=== PATIENT | female | born 1940 | race Caucasian/White ===

== ENCOUNTER 2018-02-04 11:26 | Inpatient (IN) | payer MEDICARE ==
[~2018-02-04] VITALS: Ht 160 cm; Wt 95.0 kg
[2018-02-04] MEDS ORDERED: METF850T10 PO (12:03)
[2018-02-04] MEDS ORDERED: CARV3.122 PO (12:03)
[2018-02-04] MEDS ORDERED: FURO20TA3 PO (12:03)
[2018-02-04] MEDS ORDERED: POTA20PA25 PO (12:03)
[2018-02-04] MEDS ORDERED: LISI5TAB7 PO (12:03)
[2018-02-04] MEDS ORDERED: PRAV40TA2 PO (12:03)
[2018-02-04 12:08] LABS: ALBUMIN 3.4 g/dL (3.4-5.0); ANION GAP 7 mmol/L (5-15); CALCIUM 8.9 mg/dL (8.5-10.1); CHLORIDE 103 mmol/L (98-107); CREATININE 0.84 mg/dL (0.55-1.02)
[2018-02-04 12:09] LABS: MEAN CORPUSCULAR HEMOGLOBIN 21.6 pg (27.0-34.8); MEAN CORPUSCULAR HGB CONC 31.2 g/dL (32.4-35.8); MEAN PLATELET VOLUME 7.6 fL (7.4-10.4); PLATELET COUNT 410 x10^3/uL (130-400); RED BLOOD COUNT 4.31 x10^6/uL (3.82-5.3); RED CELL DISTRIBUTION WIDTH 18.6 % (9.6-15.2)
[2018-02-04 12:19] LABS: MD YES
[2018-02-04 12:21] LABS: EOS#(MANUAL) 0.11 x10^3/uL (0.0-0.4); EOS% (MANUAL) 2 % (1-7); LYMPH#(MANUAL) 1.43 x10^3/uL (1-3.4); LYMPHS% (MANUAL) 25 % (22-44); MONOS#(MANUAL) 0.23 x10^3/uL (0.3-2.7); MONOS% (MANUAL) 4 % (2-9); SEG#(MANUAL) 3.93 x10^3/uL (1.8-6.8); SEGS% (MANUAL) 69 % (42-75)
[2018-02-04 12:22] LABS: ANISOCYTOSIS 1+; MICROCYTOSIS 1+; POLYCHROMASIA 1+
[2018-02-04 12:23] LABS: <PLATELET ESTIMATE> INCREASED; <PLT MORPHOLOGY> NORMAL PLT MORPH; HYPOCHROMIA 1+
[2018-02-04] MEDS ORDERED: KETOROLAC 30 MG/1 ML ONE (12:23)
[2018-02-04] MEDS ORDERED: DIAZEPAM 5 MG TABLET ONE (12:24)
[2018-02-04] MEDS ORDERED: KETOROLAC 30 MG/1 ML IVPush ONE (12:30)
[2018-02-04] MEDS ORDERED: DIAZEPAM 5 MG TABLET PO ONE (12:30)
[2018-02-04] MEDS ORDERED: KETOROLAC 30 MG/1 ML IM ONE (12:30)
[2018-02-04] MEDS ORDERED: ONDANSETRON ODT 4 MG PO PRN (14:30)
[2018-02-04] MEDS ORDERED: DEXTROSE 50%, 50ML SYRINGE IVPush PRN (14:30)
[2018-02-04] MEDS ORDERED: GLUCAGON 1 MG IM PRN (14:30)
[2018-02-04] MEDS ORDERED: DEXTROSE 4 GM TAB.CHEW PO PRN (14:30)
[2018-02-04] MEDS ORDERED: BISACODYL 10 MG SUPP PR PRN (14:30)
[2018-02-04] MEDS ORDERED: ENALAPRILAT 1.25 MG/ML, 2ML IVPush PRN (14:30)
[2018-02-04] MEDS ORDERED: POLYETHYLENE GLYCOL 17 GM PACKET PO PRN (14:30)
[2018-02-04 15:04] LABS: HCT (SEDRATE) 29.7 % (34.6-47.8)
[2018-02-04 15:10] VITALS: BP 138/77
[2018-02-04] MEDS: METHOCARBAMOL 500 MG TABLET PO PRN (15:54)
[2018-02-04] MEDS: ENOXAPARIN 40 MG/0.4 ML SQ SCH (15:55)
[2018-02-04] MEDS: ACETAMINOPHEN 500 MG TABLET PO SCH ×2 (15:55→21:34)
[2018-02-04] MEDS: INSULIN LISPRO 100 UNITS/ML, PEN SQ-INSULIN SCH ×2 (15:59→21:35)
[2018-02-04] MEDS: IRON SUCROSE COMPLEX 100MG/5ML IV SCH (17:45)
[2018-02-04] MEDS: CARVEDILOL 3.125 MG TABLET PO SCH (17:46)
[2018-02-04 17:47] VITALS: BP 134/78
[2018-02-04 18:35] LABS: OCCULT BLOOD NEGATIVE (NEGATIVE)
[2018-02-04 19:00] VITALS: BP 131/81
[2018-02-04] MEDS: LIDODERM 5% PATCH TD PRN (19:54)
[2018-02-04] MEDS: metFORMIN 500 MG TABLET PO SCH (19:55)
[2018-02-04] MEDS: DOCUSATE 100 MG CAPSULE PO SCH (19:55)
[2018-02-04] MEDS: PRAVASTATIN 40 MG TABLET PO SCH (19:55)
[2018-02-04] MEDS: SODIUM CHLORIDE FLUSH 10ML SYR IVF SCH (19:56)
[2018-02-05] MEDS: METHOCARBAMOL 500 MG TABLET PO PRN ×3 (00:09→21:27)
[2018-02-05] MEDS: DIPHENHYDRAMINE 25 MG CAPSULE PO PRN ×2 (00:09→21:27)
[2018-02-05 00:29] LABS: CULTURE INDICATED? YES; MICROSCOPIC INDICATED
[2018-02-05 02:35] LABS: MICROSCOPIC INDICATED
[2018-02-05 03:56] VITALS: BP 126/82
[2018-02-05] MEDS: ACETAMINOPHEN 500 MG TABLET PO SCH ×3 (04:01→16:42)
[2018-02-05] MEDS: CARVEDILOL 3.125 MG TABLET PO SCH ×2 (06:26→16:42)
[2018-02-05] MEDS: INSULIN LISPRO 100 UNITS/ML, PEN SQ-INSULIN SCH ×4 (06:28→21:00)
[2018-02-05 06:54] VITALS: BP 128/77
[2018-02-05] MEDS: DOCUSATE 100 MG CAPSULE PO SCH ×2 (08:02→20:06)
[2018-02-05] MEDS: OXYcodone IR 5MG TABLET PO PRN ×3 (08:02→21:27)
[2018-02-05] MEDS: metFORMIN 500 MG TABLET PO SCH ×2 (08:02→20:06)
[2018-02-05] MEDS: LISINOPRIL 5 MG TABLET PO SCH (08:03)
[2018-02-05] MEDS: IRON SUCROSE COMPLEX 100MG/5ML IV SCH (08:03)
[2018-02-05] MEDS: SODIUM CHLORIDE FLUSH 10ML SYR IVF SCH ×2 (08:04→21:00)
[2018-02-05] MEDS: CEFTRIAXONE 1,000 MG in SODIUM CHLORIDE 0.9% 50 ML IV SCH (08:19)
[2018-02-05 12:56] VITALS: BP 120/74
[2018-02-05] MEDS: ENOXAPARIN 40 MG/0.4 ML SQ SCH (16:42)
[2018-02-05 16:44] VITALS: BP 147/81
[2018-02-05 19:20] VITALS: BP 127/78
[2018-02-05] MEDS: PRAVASTATIN 40 MG TABLET PO SCH (20:07)
[2018-02-05] MEDS: LIDODERM 5% PATCH TD PRN (20:08)
[2018-02-06] MEDS: ACETAMINOPHEN 500 MG TABLET PO SCH ×5 (00:11→23:04)
[2018-02-06 01:00] VITALS: BP 127/79
[2018-02-06] MEDS: OXYcodone IR 5MG TABLET PO PRN ×2 (03:29→10:22)
[2018-02-06 05:27] LABS: ANION GAP 9 mmol/L (5-15); CALCIUM 8.8 mg/dL (8.5-10.1); CHLORIDE 98 mmol/L (98-107); CREATININE 0.63 mg/dL (0.55-1.02)
[2018-02-06 05:32] LABS: BASOPHILS # (AUTO) 0.01 x10^3/uL (0-0.1); BASOPHILS % (AUTO) 0 % (0-1); EOSINOPHILS # (AUTO) 0.25 x10^3/uL (0-0.4); EOSINOPHILS % (AUTO) 3 % (1-7); LYMPHOCYTES # (AUTO) 2.48 x10^3/uL (1-3.4); LYMPHOCYTES % (AUTO) 31 % (22-44); MD NO; MEAN CORPUSCULAR HGB CONC 31.7 g/dL (32.4-35.8); MEAN CORPUSCULAR VOLUME 69.3 fL (80-100); MEAN PLATELET VOLUME 7.6 fL (7.4-10.4); MONOCYTES # (AUTO) 0.41 x10^3/uL (0.2-0.8); MONOCYTES % (AUTO) 5 % (2-9); NEUTROPHILS # (AUTO) 4.79 x10^3/uL (1.8-6.8); NEUTROPHILS % (AUTO) 60 % (42-75); PLATELET COUNT 404 x10^3/uL (130-400); RED BLOOD COUNT 4.19 x10^6/uL (3.82-5.3); RED CELL DISTRIBUTION WIDTH 18.4 % (9.6-15.2)
[2018-02-06] MEDS: METHOCARBAMOL 500 MG TABLET PO PRN ×3 (05:35→22:51)
[2018-02-06] MEDS: CARVEDILOL 3.125 MG TABLET PO SCH ×2 (05:35→17:18)
[2018-02-06] MEDS: INSULIN LISPRO 100 UNITS/ML, PEN SQ-INSULIN SCH ×4 (06:29→21:35)
[2018-02-06 06:52] VITALS: BP 116/84
[2018-02-06] MEDS: IRON SUCROSE COMPLEX 100MG/5ML IV SCH (08:29)
[2018-02-06] MEDS: CEFTRIAXONE 1,000 MG in SODIUM CHLORIDE 0.9% 50 ML IV SCH ×2 (08:29→11:15)
[2018-02-06] MEDS: DOCUSATE 100 MG CAPSULE PO SCH ×2 (08:29→21:32)
[2018-02-06] MEDS: SODIUM CHLORIDE FLUSH 10ML SYR IVF SCH ×2 (08:29→21:31)
[2018-02-06] MEDS: LISINOPRIL 5 MG TABLET PO SCH (08:30)
[2018-02-06] MEDS: metFORMIN 500 MG TABLET PO SCH ×2 (08:30→21:32)
[2018-02-06 12:54] VITALS: BP 128/79
[2018-02-06] MEDS: ENOXAPARIN 40 MG/0.4 ML SQ SCH (16:21)
[2018-02-06 17:19] VITALS: BP 136/81
[2018-02-06 19:51] VITALS: BP 139/84
[2018-02-06] MEDS: DIPHENHYDRAMINE 25 MG CAPSULE PO PRN (21:32)
[2018-02-06] MEDS: PRAVASTATIN 40 MG TABLET PO SCH (21:32)
[2018-02-06] MEDS: LIDODERM 5% PATCH TD PRN (22:51)
[2018-02-07] MEDS: OXYcodone IR 5MG TABLET PO PRN (00:50)
[2018-02-07 01:10] VITALS: BP 129/69
[2018-02-07] MEDS: TEMAZEPAM 15 MG CAPSULE PO PRN (02:14)
[2018-02-07 05:36] VITALS: BP 132/82
[2018-02-07] MEDS: CARVEDILOL 3.125 MG TABLET PO SCH ×2 (05:38→17:51)
[2018-02-07] MEDS: ACETAMINOPHEN 500 MG TABLET PO SCH ×3 (05:38→17:51)
[2018-02-07 05:48] LABS: BASOPHILS # (AUTO) 0.03 x10^3/uL (0-0.1); BASOPHILS % (AUTO) 0 % (0-1); EOSINOPHILS # (AUTO) 0.15 x10^3/uL (0-0.4); EOSINOPHILS % (AUTO) 2 % (1-7); LYMPHOCYTES # (AUTO) 2.28 x10^3/uL (1-3.4); LYMPHOCYTES % (AUTO) 32 % (22-44); MD NO; MEAN CORPUSCULAR HEMOGLOBIN 22.2 pg (27.0-34.8); MEAN CORPUSCULAR HGB CONC 31.8 g/dL (32.4-35.8); MEAN CORPUSCULAR VOLUME 69.8 fL (80-100); MEAN PLATELET VOLUME 7.4 fL (7.4-10.4); MONOCYTES % (AUTO) 6 % (2-9); NEUTROPHILS # (AUTO) 4.29 x10^3/uL (1.8-6.8); NEUTROPHILS % (AUTO) 60 % (42-75); PLATELET COUNT 376 x10^3/uL (130-400); RED BLOOD COUNT 4.08 x10^6/uL (3.82-5.3); RED CELL DISTRIBUTION WIDTH 18.4 % (9.6-15.2)
[2018-02-07 06:05] LABS: ANION GAP 7 mmol/L (5-15); CALCIUM 8.7 mg/dL (8.5-10.1); CHLORIDE 100 mmol/L (98-107); CREATININE 0.65 mg/dL (0.55-1.02)
[2018-02-07 06:50] VITALS: BP 124/74
[2018-02-07] MEDS: INSULIN LISPRO 100 UNITS/ML, PEN SQ-INSULIN SCH ×4 (07:28→20:55)
[2018-02-07] MEDS: SODIUM CHLORIDE FLUSH 10ML SYR IVF SCH ×2 (09:00→20:53)
[2018-02-07] MEDS: LISINOPRIL 5 MG TABLET PO SCH (09:01)
[2018-02-07] MEDS: metFORMIN 500 MG TABLET PO SCH (09:01)
[2018-02-07] MEDS: IRON SUCROSE COMPLEX 100MG/5ML IV SCH (09:01)
[2018-02-07] MEDS: DOCUSATE 100 MG CAPSULE PO SCH ×2 (09:01→20:53)
[2018-02-07] MEDS: CEFTRIAXONE 1,000 MG in SODIUM CHLORIDE 0.9% 50 ML IV SCH (11:26)
[2018-02-07 11:41] LABS: THYROID STIMULATING HORMONE 2.56 mIU/L (0.358-3.740)
[2018-02-07] MEDS: METHOCARBAMOL 500 MG TABLET PO PRN (12:36)
[2018-02-07] MEDS ORDERED: GADOBUTROL 10 MMOL/10 ML PFS ONE (13:31)
[2018-02-07 14:00] VITALS: BP 101/66
[2018-02-07] MEDS: ENOXAPARIN 40 MG/0.4 ML SQ SCH (16:18)
[2018-02-07 19:05] VITALS: BP 127/87
[2018-02-07] MEDS: PRAVASTATIN 40 MG TABLET PO SCH (20:53)
[2018-02-08] MEDS: ACETAMINOPHEN 500 MG TABLET PO SCH ×5 (00:20→23:05)
[2018-02-08 02:44] VITALS: BP 137/80
[2018-02-08 06:02] LABS: ALBUMIN 3.3 g/dL (3.4-5.0); ANION GAP 9 mmol/L (5-15); CALCIUM 8.8 mg/dL (8.5-10.1); CHLORIDE 97 mmol/L (98-107)
[2018-02-08 06:03] LABS: CREATININE 0.63 mg/dL (0.55-1.02)
[2018-02-08] MEDS: CARVEDILOL 3.125 MG TABLET PO SCH ×2 (06:10→17:42)
[2018-02-08] MEDS: INSULIN LISPRO 100 UNITS/ML, PEN SQ-INSULIN SCH ×4 (06:22→19:45)
[2018-02-08] MEDS ORDERED: SODIUM CHLORIDE 0.9% 1,000 ML IV SCH (07:00)
[2018-02-08 07:34] VITALS: BP 129/80
[2018-02-08] MEDS: LISINOPRIL 5 MG TABLET PO SCH (08:25)
[2018-02-08] MEDS: IRON SUCROSE COMPLEX 100MG/5ML IV SCH (08:25)
[2018-02-08] MEDS: SODIUM CHLORIDE FLUSH 10ML SYR IVF SCH ×2 (08:25→19:49)
[2018-02-08] MEDS: DOCUSATE 100 MG CAPSULE PO SCH ×2 (08:25→19:49)
[2018-02-08] MEDS: CEFTRIAXONE 1,000 MG in SODIUM CHLORIDE 0.9% 50 ML IV SCH (11:25)
[2018-02-08 12:17] LABS: ALBUMIN 3.2 g/dL (3.4-5.0); ANION GAP 8 mmol/L (5-15); CALCIUM 8.3 mg/dL (8.5-10.1); CHLORIDE 98 mmol/L (98-107); CREATININE 0.59 mg/dL (0.55-1.02)
[2018-02-08 13:20] VITALS: BP 135/66
[2018-02-08] MEDS: ENOXAPARIN 40 MG/0.4 ML SQ SCH (15:57)
[2018-02-08 18:25] VITALS: BP 132/83
[2018-02-08] MEDS: PRAVASTATIN 40 MG TABLET PO SCH (19:49)
[2018-02-08] MEDS: OXYcodone IR 5MG TABLET PO PRN (23:05)
[2018-02-09 01:00] VITALS: BP 142/79
[2018-02-09 05:11] LABS: ALBUMIN 3.1 g/dL (3.4-5.0); ANION GAP 8 mmol/L (5-15); BASOPHILS # (AUTO) 0.04 x10^3/uL (0-0.1); BASOPHILS % (AUTO) 0 % (0-1); CALCIUM 8.2 mg/dL (8.5-10.1); CHLORIDE 98 mmol/L (98-107); EOSINOPHILS # (AUTO) 0.15 x10^3/uL (0-0.4); EOSINOPHILS % (AUTO) 2 % (1-7); LYMPHOCYTES # (AUTO) 1.84 x10^3/uL (1-3.4); LYMPHOCYTES % (AUTO) 19 % (22-44); MD NO; MEAN CORPUSCULAR HGB CONC 30.9 g/dL (32.4-35.8); MEAN CORPUSCULAR VOLUME 71.3 fL (80-100); MEAN PLATELET VOLUME 7.6 fL (7.4-10.4); MONOCYTES # (AUTO) 0.54 x10^3/uL (0.2-0.8); MONOCYTES % (AUTO) 6 % (2-9); NEUTROPHILS # (AUTO) 7.18 x10^3/uL (1.8-6.8); NEUTROPHILS % (AUTO) 74 % (42-75); PLATELET COUNT 402 x10^3/uL (130-400); RED BLOOD COUNT 4.08 x10^6/uL (3.82-5.3); RED CELL DISTRIBUTION WIDTH 18.5 % (9.6-15.2)
[2018-02-09 05:12] LABS: CREATININE 0.66 mg/dL (0.55-1.02)
[2018-02-09] MEDS: CARVEDILOL 3.125 MG TABLET PO SCH ×2 (05:28→17:56)
[2018-02-09] MEDS: ACETAMINOPHEN 500 MG TABLET PO SCH ×3 (05:28→17:56)
[2018-02-09] MEDS: OXYcodone IR 5MG TABLET PO PRN (05:28)
[2018-02-09] MEDS ORDERED: SODIUM CHLORIDE 0.9% 1,000 ML IV SCH (07:00)
[2018-02-09] MEDS: INSULIN LISPRO 100 UNITS/ML, PEN SQ-INSULIN SCH ×4 (07:00→20:37)
[2018-02-09 07:09] VITALS: BP 135/85
[2018-02-09] MEDS: SODIUM CHLORIDE FLUSH 10ML SYR IVF SCH ×2 (09:00→20:37)
[2018-02-09] MEDS: DOCUSATE 100 MG CAPSULE PO SCH ×2 (09:05→20:37)
[2018-02-09] MEDS: LISINOPRIL 5 MG TABLET PO SCH (09:05)
[2018-02-09] MEDS: GABAPENTIN 100 MG CAPSULE PO SCH ×3 (09:32→20:37)
[2018-02-09] MEDS: CALCIUM CARBONATE 500 MG TAB.CHEW PO PRN ×3 (09:32→20:37)
[2018-02-09] MEDS: CEFTRIAXONE 1,000 MG in SODIUM CHLORIDE 0.9% 50 ML IV SCH (11:22)
[2018-02-09 12:39] VITALS: BP 111/68
[2018-02-09 15:44] LABS: SODIUM,URINE RANDOM 45 mmol/L
[2018-02-09] MEDS: ENOXAPARIN 40 MG/0.4 ML SQ SCH (15:55)
[2018-02-09 17:22] LABS: OSMOLALITY,URINE 235 mOsm/kg (500-850)
[2018-02-09 18:53] VITALS: BP 122/83
[2018-02-09] MEDS: PRAVASTATIN 40 MG TABLET PO SCH (20:37)
[2018-02-10] MEDS: ACETAMINOPHEN 500 MG TABLET PO SCH ×5 (00:18→23:47)
[2018-02-10 02:17] VITALS: BP 120/79
[2018-02-10 05:21] LABS: ANION GAP 7 mmol/L (5-15); CALCIUM 8.5 mg/dL (8.5-10.1); CHLORIDE 101 mmol/L (98-107)
[2018-02-10 05:23] LABS: CREATININE 0.62 mg/dL (0.55-1.02)
[2018-02-10] MEDS: CARVEDILOL 3.125 MG TABLET PO SCH ×2 (06:07→17:52)
[2018-02-10] MEDS: INSULIN LISPRO 100 UNITS/ML, PEN SQ-INSULIN SCH ×4 (07:41→20:14)
[2018-02-10 07:48] VITALS: BP 115/74
[2018-02-10] MEDS: LISINOPRIL 5 MG TABLET PO SCH (09:07)
[2018-02-10] MEDS: GABAPENTIN 100 MG CAPSULE PO SCH ×3 (09:07→20:06)
[2018-02-10] MEDS: DOCUSATE 100 MG CAPSULE PO SCH ×2 (09:07→20:06)
[2018-02-10] MEDS: SODIUM CHLORIDE FLUSH 10ML SYR IVF SCH ×2 (09:09→20:15)
[2018-02-10] MEDS: CEFTRIAXONE 1,000 MG in SODIUM CHLORIDE 0.9% 50 ML IV SCH (11:41)
[2018-02-10 14:15] VITALS: BP 124/76
[2018-02-10] MEDS: ENOXAPARIN 40 MG/0.4 ML SQ SCH (16:42)
[2018-02-10] MEDS: CALCIUM CARBONATE 500 MG TAB.CHEW PO PRN ×3 (17:50→23:47)
[2018-02-10] MEDS: PRAVASTATIN 40 MG TABLET PO SCH (20:06)
[2018-02-10 20:42] VITALS: BP 126/80
[2018-02-11 01:27] VITALS: BP 141/85
[2018-02-11] MEDS: TEMAZEPAM 15 MG CAPSULE PO PRN (01:47)
[2018-02-11 05:04] LABS: BASOPHILS # (AUTO) 0.08 x10^3/uL (0-0.1); BASOPHILS % (AUTO) 1 % (0-1); EOSINOPHILS % (AUTO) 2 % (1-7); LYMPHOCYTES # (AUTO) 2.55 x10^3/uL (1-3.4); LYMPHOCYTES % (AUTO) 25 % (22-44); MD NO; MEAN CORPUSCULAR HEMOGLOBIN 23.5 pg (27.0-34.8); MEAN CORPUSCULAR HGB CONC 32.1 g/dL (32.4-35.8); MEAN CORPUSCULAR VOLUME 73.2 fL (80-100); MEAN PLATELET VOLUME 7.9 fL (7.4-10.4); MONOCYTES # (AUTO) 0.62 x10^3/uL (0.2-0.8); MONOCYTES % (AUTO) 6 % (2-9); NEUTROPHILS # (AUTO) 6.83 x10^3/uL (1.8-6.8); NEUTROPHILS % (AUTO) 66 % (42-75); PLATELET COUNT 387 x10^3/uL (130-400); RED BLOOD COUNT 3.92 x10^6/uL (3.82-5.3); RED CELL DISTRIBUTION WIDTH 18.7 % (9.6-15.2)
[2018-02-11 05:13] LABS: ANION GAP 8 mmol/L (5-15); CALCIUM 8.7 mg/dL (8.5-10.1); CHLORIDE 99 mmol/L (98-107); CREATININE 0.53 mg/dL (0.55-1.02)
[2018-02-11] MEDS: ACETAMINOPHEN 500 MG TABLET PO SCH ×2 (06:02→11:16)
[2018-02-11] MEDS: CARVEDILOL 3.125 MG TABLET PO SCH (06:02)
[2018-02-11 06:55] VITALS: BP 130/79
[2018-02-11] MEDS: INSULIN LISPRO 100 UNITS/ML, PEN SQ-INSULIN SCH ×2 (07:00→11:00)
[2018-02-11] MEDS: SODIUM CHLORIDE FLUSH 10ML SYR IVF SCH (09:00)
[2018-02-11] MEDS: DOCUSATE 100 MG CAPSULE PO SCH (09:09)
[2018-02-11] MEDS: GABAPENTIN 100 MG CAPSULE PO SCH (09:09)
[2018-02-11] MEDS: LISINOPRIL 5 MG TABLET PO SCH (09:09)
[2018-02-11] MEDS: CEFTRIAXONE 1,000 MG in SODIUM CHLORIDE 0.9% 50 ML IV SCH (11:11)
[2018-02-11] MEDS: CALCIUM CARBONATE 500 MG TAB.CHEW PO PRN (13:10)
[2018-02-11 13:11] VITALS: BP 136/83
== END 2018-02-11 15:10 | disposition left against medical advice (07) | DRG 555 ==
LOC: ED 13:23 → 4NOR 13:24 → ED 13:46 → 4NOR 23:00
PROVIDERS: ADMIT Family Medicine; ATTEND Family Medicine
DX: M25.552 Pain in left hip (principal); G92 Toxic encephalopathy; N39.0 Urinary tract infection, site not specified; E87.1 Hypo-osmolality and hyponatremia; M46.1 Sacroiliitis, not elsewhere classified; G31.84 Mild cognitive impairment of uncertain or unknown etiology; E11.65 Type 2 diabetes mellitus with hyperglycemia; W18.30XA Fall on same level, unspecified, initial encounter; I11.0 Hypertensive heart disease with heart failure; D72.829 Elevated white blood cell count, unspecified; D50.9 Iron deficiency anemia, unspecified; I50.9 Heart failure, unspecified; B96.20 Unspecified Escherichia coli [E. coli] as the cause of diseases classified elsewhere; Z53.21 Procedure and treatment not carried out due to patient leaving prior to being seen by health care provider; R79.89 Other specified abnormal findings of blood chemistry; Z96.643 Presence of artificial hip joint, bilateral; M51.36 Other intervertebral disc degeneration, lumbar region; I25.2 Old myocardial infarction; Y93.89 Activity, other specified; Y99.8 Other external cause status; Y92.89 Other specified places as the place of occurrence of the external cause
CPT/HCPCS: 36415; 70450; 72110; 72190; 80048; 81001; 82040; 82272; 82533; 82607; 82728; 82962; 83540; 83550; 83735; 83930; 83935; 84300; 84443; 84466; 85025; 85651; 87077; 87086; 87186; 96374; A9585; G0378; J0696; J1650; J1756; J1885; 92523-GN; G0515-GN; J1815; J7030; Q0163

== ENCOUNTER 2019-04-12 00:39 | Emergency (ER) | payer MEDICARE ==
[~2019-04-12] VITALS: Ht 162.6 cm; Wt 86.0 kg
[~2019-04-12 00:39] MED LIST: CARV3.122 PO; FURO20TA3 PO; LISI5TAB7 PO; METF850T10 PO; POTA20PA25 PO; PRAV40TA2 PO
--- NOTE | 2019-04-12 00:50 | NUR ---
inez russell. pt fell and could not get up. denies pain at this time. pt states she didnt want to come to the hospital but her son called the ambulance and made her come. pt states she wants to go home.
[2019-04-12 01:38] VITALS: BP 127/89
--- NOTE | 2019-04-12 01:39 | NUR ---
DANIEL RN: PT WAS ABLE TO DRESS SELF AND AMBULATE AROUND ROOM SAFELY. PT READY FOR DISCHARGE
== END 2019-04-12 01:41 | disposition home or self-care (01) ==
LOC: ED 01:35
DX: R52 Pain, unspecified (principal); I11.0 Hypertensive heart disease with heart failure; E11.9 Type 2 diabetes mellitus without complications; I50.9 Heart failure, unspecified; I25.2 Old myocardial infarction; Z96.643 Presence of artificial hip joint, bilateral; W01.0XXA Fall on same level from slipping, tripping and stumbling without subsequent striking against object, initial encounter; Y93.89 Activity, other specified; Y92.009 Unspecified place in unspecified non-institutional (private) residence as the place of occurrence of the external cause; Y99.8 Other external cause status
CPT/HCPCS: 93005; 99283